=== PATIENT | female | born 1960 | race Caucasian/White ===

== ENCOUNTER 2025-10-12 11:08 | Outpatient (AMB) | payer MEDICARE, SELFPAY ==
--- NOTE | 2025-10-12 11:09 | A.OFFPC_ITS ---
Vital Signs 10/12/25 11:12 Height 5 ft 1 in Weight 125 lb BMI 23.6 BP 122/70 Blood Pressure Location Lt brachial Position Sitting Respiration 16 Pulse 72 Pulse Source Pulse Oximeter Temp 97.3 F Temp Source Temporal Artery Scan Pulse Oximetry (%) 97 Oxygen Delivery Method Room Air Intake Visit Reasons: [facility] care Adhesive Sprayer Required: No Accompanied by: Self / Same As Patient Allergies bee pollen (bee stings) Allergy (Intermediate, Verified 10/12/25 11:14) Hives Medication List - Last Reconciled 10/12/25 by Katie Phoenix MD bupropion HCl XL 300 mg PO DAILY Tobacco use date assessed: 10/12/25 Fall risk assessment: No Falls in past year Last assessed Fall Risk: 10/12/25 Dental Screening Dental Screen Date: 10/12/25 Did you have a dental visit in the last 12 months?: Yes Did you have a dental problem in the last 6 months where you did not have access to dental care?: No Was dental information given to patient?: Patient has dentist [facility] Medical History (Updated 10/12/25 @ 11:40 by Katie Phoenix MD) Routine adult health maintenance Hyperlipidemia, unspecified Depression with anxiety Surgical History (Updated 10/09/25 @ 16:16 by Thuy Hunt) History of colonoscopy (~04/09/19) Family History (Updated 10/12/25 @ 11:21 by Katie Phoenix MD) Other Alzheimer's dementia Breast cancer Hx of CABG Hyperlipidemia, unspecified Social History Housing: House Patient Tobacco Use Status: Never used Tobacco e-Cigarette/Vaping Use: Never Used service: No Current occupational status: retired Questionnaire PHQ-9 Over the last 2 weeks, how often have you been bothered by any of the following problems? 1. Little interest or pleasure in doing things: several days 2. Feeling down, depressed, or hopeless: not at all 3. Trouble falling or staying asleep, or sleeping too much: not at all 4. Feeling tired or having little energy: not at all 5. Poor appetite or overeating: not at all 6. Feeling bad about yourself - or that you are a failure or have let yourself or your family down: not at all 7. Trouble concentrating on things, such as reading the newspaper or watching television: not at all 8. Moving or speaking so slowly that other people could have noticed. Or the opposite - being so fidgety or restless that you have been moving around a lot more than usual: not at all 9. Thoughts that you would be better off or of hurting yourself in some way: not at all Total score: 1 Depression Screening Interpretation: Negative Depression Screening Done: Yes 90487 - PHQ-9 Billing: Yes Source: Developed by Drs. Jeffery Chung, Lyssa Henson, Konrad Mcnally and colleagues, with an educational kimberley from [employer]. AUDIT C Alcohol Use Questionnaire (AUDIT-C) 1. How often do you have a drink containing alcohol?: Monthly or less 2. How many drinks containing alcohol do you have on a typical day when you are drinking?: 1 or 2 3. How often do you have six or more drinks on one occasion?: Never Total Score: 1 Physical exam (Primary Care) Vital Signs: Last Vital Signs Temp 97.3 F 10/12/25 11:12 Pulse 72 10/12/25 11:12 Resp 16 10/12/25 11:12 BP 122/70 10/12/25 11:12 Pulse Ox 97 10/12/25 11:12 Oxygen Delivery Method Room Air 10/12/25 11:12 BMI result Body Mass Index 23.6 Tobacco/Smoking Status: Tobacco use Status Tobacco use date assessed 10/12/25 10/12/25 11:16 Patient Tobacco Use Status Never used Tobacco 10/12/25 11:16 e-Cigarette/Vaping Use Never Used 10/12/25 11:16 PHQ-9: PHQ-9 Score PHQ-9: Total score 1 10/12/25 11:46 Depression Screening Interpretation: Negative Coding Diagnoses Hyperlipidemia, unspecified E78.5 Routine adult health maintenance Z00.00 Additional Codes PHQ-9 - 85157 - PHQ-9 Billing: Yes ([id number]) Assessment & Plan Assessment & Plan (1) Hyperlipidemia, unspecified: Code(s): E78.5 - Hyperlipidemia, unspecified Category: Medical (2) Routine adult health maintenance: Code(s): Z00.00 - Encounter for general adult medical examination without abnormal findings Category: Medical Orders: Orders Complete Blood Count Auto Diff Today E78.5 - Hyperlipidemia, unspecified, Z00.00 - Encounter for general adult medical examination without abnormal findings Comprehensive Met. Panel Today E78.5 - Hyperlipidemia, unspecified, Z00.00 - Encounter for general adult medical examination without abnormal findings Lipid Panel Today E78.5 - Hyperlipidemia, unspecified, Z00.00 - Encounter for general adult medical examination without abnormal findings Medications: New bupropion HCl XL 300 mg (2 x 150 mg) PO DAILY 180 tabs 3RF
[2025-10-12 11:12] VITALS: BP 122/70; PULSE 72; RESP 16; TEMP 36.3; O2SAT 97; BMI 23.6
--- NOTE | 2025-10-12 12:03 | AM.OFFVISMDC ---
Intake Vital Signs 10/12/25 11:12 Height 5 ft 1 in Weight 125 lb BMI 23.6 BP 122/70 Blood Pressure Location Lt brachial Position Sitting Respiration 16 Pulse 72 Pulse Source Pulse Oximeter Temp 97.3 F Temp Source Temporal Artery Scan Pulse Oximetry (%) 97 Oxygen Delivery Method Room Air Intake Visit Reasons: [facility] care Lead Cargoman Required: No Accompanied by: Self / Same As Patient Allergies bee pollen (bee stings) Allergy (Intermediate, Verified 10/12/25 12:03) Hives Medication List - Last Reconciled 10/12/25 by Katie Phoenix MD bupropion HCl XL 300 mg PO DAILY HPI HPI Comments History of Present Illness Details The patient is a 65-year-old female presenting to [facility] and for Medicare Wellness Visit. Health Risk Assessment Completed. No cognitive deficits noted, no opioid use. Min Cog score 5/5. Grief Reaction and Depression: The patient is managing ongoing grief following the of her in 2022, about a year after she retired. She reports experiencing intermittent waves of sadness, which she describes as a cloud over my head, that can be triggered by events such as anniversaries and may last for two to five days, though she notes the intensity has lessened. She successfully tapered off sertraline and continues to take bupropion 300 mg (two 150mg tablets) each morning, which helps with energy and feelings of dragging. The patient leads an active lifestyle, playing pickleball, tennis, and paddle, and attending exercise classes. Health Maintenance: The patient's next mammogram is due in 2025. Her previous mammograms were performed at [facility], and she will arrange to have those records transferred. The patient feels she is independent with her activities of daily living and managing her health. Colonoscopy up to date. Last bone density done at [facility] November 2024- showed osteopenia. Allergies: The patient reports an allergy to bee stings. She also had a reaction to the RSV vaccine, which was evaluated by a cone winder in [place]. Care Team [facility]-mammogram Dr. Guzman-cone winder in [facility] Medical History (Updated 10/12/25 @ 13:05 by Katie Phoenix MD) Osteopenia Routine adult health maintenance Hyperlipidemia, unspecified Depression with anxiety Surgical History (Updated 10/09/25 @ 16:16 by Thuy Hunt) History of colonoscopy (~04/09/19) Family History (Updated 10/12/25 @ 11:21 by Katie Phoenix MD) Other Alzheimer's dementia Breast cancer Hx of CABG Hyperlipidemia, unspecified Social History Housing: House Patient Tobacco Use Status: Never used Tobacco e-Cigarette/Vaping Use: Never Used service: No Current occupational status: retired Questionnaire Medicare Wellness Checkup [age] What gender do you identify with?: female During the past 4 weeks, how much have you been bothered by emotional problems such as feeling anxious, depressed, irritable, sad or downhearted, and blue?: slightly During the past 4 weeks, has your physical & emotional health limited your social activities with family, friends, neighbors, or groups?: slightly During the past 4 weeks, how much bodily pain have you generally had?: no pain During the past 4 weeks, was someone available to help you if you needed & wanted help?: yes, as much as I wanted During the past 4 weeks, what was the hardest physical activity you could do for at least 2 minutes?: very heavy Can you get to places out of walking distance without help? (For eg., can you travel alone on buses, taxis or drive your car?): Yes Can you go shopping for groceries or clothes without someone's help?: Yes Can you prepare your own meals?: Yes Can you do your housework without help?: Yes Because of any health problems, do you need the help of another person with your personal care needs such as eating, bathing, dressing or getting around the house?: No Can you handle your own money without help?: Yes During the past 4 weeks, how would you rate your health in general?: excellent During the past 4 weeks how have things been going for you?: very well; could hardly better Are you having difficulties driving your car?: no Do you always fasten your seat belt when you are in a car?: yes, usually During past 4 weeks, have you been bothered by the following: never: Falling or dizzy when standing up, Trouble eating well? and Problems using the telephone? and seldom: Tiredness or fatigue? Have you fallen 2 or more times in the past year?: No Are you afraid of falling?: No Are you a smoker?: no During the past 4 weeks, how many drinks of wine, beer, or other alcoholic beverages did you have?: 1 drink or less per week Do you exercise for about 20 minutes 3 or more times a week?: yes, most of the time Have you been given information to help with the following?: no: Hazards in your house that might hurt you? and no: Keeping track of your medications? How often do you have trouble taking medicines the way you have been told to take them?: I always take medicine as prescribed How confident are you that you can control & manage most of your health problems?: very confident What is your race?: White PHQ-9 Over the last 2 weeks, how often have you been bothered by any of the following problems? 1. Little interest or pleasure in doing things: several days 2. Feeling down, depressed, or hopeless: not at all 3. Trouble falling or staying asleep, or sleeping too much: not at all 4. Feeling tired or having little energy: not at all 5. Poor appetite or overeating: not at all 6. Feeling bad about yourself - or that you are a failure or have let yourself or your family down: not at all 7. Trouble concentrating on things, such as reading the newspaper or watching television: not at all 8. Moving or speaking so slowly that other people could have noticed. Or the opposite - being so fidgety or restless that you have been moving around a lot more than usual: not at all 9. Thoughts that you would be better off or of hurting yourself in some way: not at all Total score: 1 Depression Screening Interpretation: Negative Depression Screening Done: Yes 45404 - PHQ-9 Billing: Yes Source: Developed by Drs. Jeffery Chung, Lyssa Henson, Konrad Mcnally and colleagues, with an educational kimberley from [employer]. AUDIT C Alcohol Use Questionnaire (AUDIT-C) 1. How often do you have a drink containing alcohol?: Monthly or less 2. How many drinks containing alcohol do you have on a typical day when you are drinking?: 1 or 2 3. How often do you have six or more drinks on one occasion?: Never Total Score: 1 Review of Systems Narrative Review of Systems - Constitutional: Reports occasional emotional fatigue in the evenings and a dragging feeling in the mornings. Denies pain, or falls. - Psychiatric: Reports intermittent low mood that lasts for a few days at a time but denies that it is as intense as it was previously. - Allergic/Immunologic: Reports an allergy to bee stings and a history of a reaction to the RSV vaccine. - Neurological: Denies fear of falling. - Musculoskeletal: Denies pain. - Extremities: Denies swelling. Physical Exam Exam Exam: Physical Exam - General: Alert and cooperative, no acute distress. - HEENT: Ears are clear. - Oropharynx is clear. - Neck: Supple, no tenderness on palpation. - Lungs: Clear to auscultation bilaterally. - Cardiovascular: Normal heart sounds. - Abdomen: Soft, non-tender, with normoactive bowel sounds. - Extremities: No lower extremity edema. - Neurological: Passed Mini-Cog screening, including clock draw and 3-word recall. Vital Signs: Last Vital Signs Temp 97.3 F 10/12/25 11:12 Pulse 72 10/12/25 11:12 Resp 16 10/12/25 11:12 BP 122/70 10/12/25 11:12 Pulse Ox 97 10/12/25 11:12 Oxygen Delivery Method Room Air 10/12/25 11:12 BMI result Body Mass Index 23.6 Assessment & Plan Assessment & Plan (1) Routine adult health maintenance: Code(s): Z00.00 - Encounter for general adult medical examination without abnormal findings (2) Hyperlipidemia, unspecified: Code(s): E78.5 - Hyperlipidemia, unspecified Qualifiers: Hyperlipidemia type: unspecified Qualified Code(s): E78.5 - Hyperlipidemia, unspecified Plan Assessment and Plan 1. Grief Reaction/Depression - The patient is managing her mood and grief with bupropion 300 mg (two tablets daily) after successfully tapering off sertraline. - She reports it helps her morning energy levels. - Plan is to continue bupropion. 2. Health Maintenance/Re-establishment of Care - The patient presents for a wellness visit to re-establish care. - A plan for routine monitoring was established. - Plan includes ordering fasting labs for diabetes, cholesterol, and liver/kidney function - The patient will contact [facility] to have her prior mammogram records transferred. - Follow-up is scheduled for a yearly physical in 2025 Plan - Orders for fasting labs have been placed. - Patient will have mammogram records from [facility] sent to the office. - Patient to schedule a follow-up appointment for her annual physical next year Discussion Notes I have seen the patient today to re-establish care. We discussed her current medication regimen, and I have renewed her prescription for bupropion 300 mg. I provided a requisition for routine fasting labs We reviewed her preventative health needs, and I advised her to request her prior mammogram records from [facility] for our files. Patient Instructions - Continue taking your bupropion (Wellbutrin) as prescribed. - Please go to the lab for fasting blood work (do not eat or drink anything except water for 8-12 hours before). - Please contact the [facility] to request that they fax your past results - Please feel free to call our office if you have any questions or concerns. Orders: Orders Complete Blood Count Auto Diff Today E78.5 - Hyperlipidemia, unspecified, Z00.00 - Encounter for general adult medical examination without abnormal findings Comprehensive Met. Panel Today E78.5 - Hyperlipidemia, unspecified, Z00.00 - Encounter for general adult medical examination without abnormal findings Lipid Panel Today E78.5 - Hyperlipidemia, unspecified, Z00.00 - Encounter for general adult medical examination without abnormal findings Medications: New bupropion HCl XL 300 mg (2 x 150 mg) PO DAILY 180 tabs 3RF Quality Reporting (2019) Depression/Bipolar (159/160/161/177) PHQ-9: Total score: 1 Coding Level of Care Code Medicare Subsequent (G0439) Diagnoses Routine adult health maintenance Z00.00 Hyperlipidemia, unspecified hyperlipidemia type E78.5 Hyperlipidemia type: unspecified Additional Codes PHQ-9 - 36891 - PHQ-9 Billing: Yes ([id number]) Comment add [id number] code to visit
== END 2025-10-12 11:58 | disposition home or self-care (01) ==
LOC: HO.HMCHD 11:09
PROVIDERS: PCP Internal Medicine; Visit Provider Internal Medicine
DX: Z00.00 Encounter for general adult medical examination without abnormal findings (principal); E78.5 Hyperlipidemia, unspecified

== ENCOUNTER → 2025-10-12 11:08 | Outpatient (BNVA) | payer MEDICARE, SELFPAY | PROVIDERS: PCP Internal Medicine; Visit Provider Internal Medicine | DX: Z00.00 Encounter for general adult medical examination without abnormal findings (principal); E78.5 Hyperlipidemia, unspecified; M85.80 Other specified disorders of bone density and structure, unspecified site; F43.23 Adjustment disorder with mixed anxiety and depressed mood; Z76.89 Persons encountering health services in other specified circumstances; Z13.30 Encounter for screening examination for mental health and behavioral disorders, unspecified | CPT/HCPCS: 96127; 99212 ==

== ENCOUNTER 2025-10-16 09:05 | Outpatient (REF) | payer MEDICARE, SELFPAY ==
--- OUTSIDE RECORDS SUMMARY | 2025-10-16 09:26 | XMS_ITS | Encounter Summary ---
Author Organization [facility] Address [address] [facility] [address] [place] [phone] Phone Care Team Providers Care Complaint Inspector Name Role Phone Katie Phoenix MD Primary Care Provider + Encounter Details Date Type Department Care Team (Late st Contact Info) Description 05/30/2023 Procedure Pass [facility] [address] [place] [phone] Social History Tobacco Use Types Packs/Day Years Used Date Smoking Tobacco: Never Assessed Education Answer Date Recorded Are you interested in more education? Not on marion e 03/22/2023 Are you concerned about learning? Not on file 03/22/2023 No 03/22/2023 No 03/22/2023 Digital Access Answer Date Recorded No 04/18/2023 No 04/18/2023 Reliable internet access at home? Not on file 04/18/2023 Device with a working camera? Not on file Comments Unknown Sex and Gender Information Value Date Recorded Sex Assigned at Not on file Legal Sex Female 7:43 PM EST Gender Identity Not on file Sexual Orientation Not on file documented as of this encounter Plan of Treatment Upcoming Encounters Date Type Department Care Team (Late Contact Info) Description 08/12/2024 Procedure Pass [facility] [address] [place] [phone] 01/21/2026 1:45 PM EST Appointment [facility] [address] [place] [phone] Katie Phoenix MD [address] [place] [phone] documented as of this encounter Visit Diagnoses Not on filedocumented in this encounter Care Teams Complaint Inspector Relationship Specialty Start Date End Date Katie Phoenix MD PCP - General Internal Medicine 11/12/19 documented as of this encounter Additional Source Comments The information contained in this document represents components of the legal health record. It is not the complete legal health record.[facility]
--- OUTSIDE RECORDS SUMMARY | 2025-10-16 09:26 | XMS_ITS | Encounter Summary ---
Author Organization [facility] Address [address] [address] Phone Care Team Providers Care Distribution Center Associate Name Role Phone Katie Phoenix MD Primary Care Provider + Encounter Details Date Type Department Care Team (Late st Contact Info) Description 06/05/2024 Ancillary Orders [facility] [address] [place] [address] Katie Phoenix MD [address] [place] [phone] Abnormal finding on radiological examination of breast (Primary Dx) Social History Tobacco Use Types Packs/Day Years [...] Encounters Date Type Department Care Team (Late st Contact Info) Description 08/12/2024 Procedure Pass [facility] [address] [place] [address] 01/21/2026 1:45 PM EST Appointment [facility] [address] [place] [address] Katie Phoenix MD [address] [place] [phone] documented as of this encounter Results * (ABNORMAL) BI MAMMOGRAM DIAGNOSTIC WITH TOMOSYNTHESIS WITH CAD (RIGHT) (06/19/2024 12:42 PM EDT) Anatomical Region Laterality Modality Breast Right, Breast Bilateral Right M ammography 06/19/2024 2:20 PM EDT Impressions 06/19/2024 2:53 PM EDT New 0.3 cm group of indeterminate calcifications in the right upper outer quadrant. Recommend stereotactic core biopsy at this time. BI-RADS 4B SUSPICIOUS Results and recommendations were communicated to the patient at time of examination. The patient has met with the breast imaging navigator to schedule the recommended procedure. Results and recommendations will be communicated to the referring provider via phone call. ATTESTATION: Kiki Rivera, as teaching physician have reviewed the images, if any, for this patient's exam, and if necessary, have edited the report originally created by Julián Piña. Narrative 06/19/2024 2:53 PM EDT BI MAMMOGRAM DIAGNOSTIC WITH TOMOSYNTHESIS WITH CAD (RIGHT) Additional patient information: Callback from screening. COMPARISON: Comparison is made with relevant prior imaging. Breast composition: The breast tissue is heterogeneously dense which may obscure small masses. FINDINGS: Right Mammogram: Magnification views redemonstrate grouped, amorphous calcifications of upper outer quadrant at mid depth in an area measuring 0.3 cm. Procedure Note Kiki Steel MD - 06/19/2024 BI MAMMOGRAM DIAGNOSTIC WITH TOMOSYNTHESIS WITH CAD (RIGHT) Additional patient information: Callback from screening. COMPARISON: Comparison is made with relevant prior imaging. Breast composition: The breast tissue is heterogeneously dense which mayobscure small masses. FINDINGS: Right Mammogram: Magnification views redemonstrate grouped, amorphous calcifications ofupper outer quadrant at mid depth in an area measuring 0.3 cm. IMPRESSION: New 0.3 cm group of indeterminate calcifications in the right upper outerquadrant. Recommend stereotactic core biopsy at this time. BI-RADS 4B SUSPICIOUS Results and recommendations were communicated to the patient at time ofexamination. The patient has met with the breast imaging navigator toschedule the recommended procedure. Results and recommendations will be communicated to the referring providervia phone call. ATTESTATION: Kiki Rivera, as teaching physician have reviewed theimages, if any, for this patient's exam, and if necessary, have edited thereport originally created by Juilán Piña. us Katie Phoenix MD IMG MG EXAMS Final Re sult documented in this encounter Visit Diagnoses Diagnosis Abnormal finding on radiological examination of breast- Primary Abnormal finding on radiological examination of breast documented in this encounter Care Teams Distribution Center Associate Relationship Specialty Start Date End Date Katie Phoenix MD PCP - General Internal Medicine 11/12/19 documented as of this encounter Additional Source Comments The information contained in this document represents components of the legal health record. It is not the complete legal health record.[facility]
--- OUTSIDE RECORDS SUMMARY | 2025-10-16 09:26 | XMS_ITS | Encounter Summary ---
Author Organization [facility] Address [address] [facility] [address] [place] [address] Phone Care Team Providers Care Endband Sizer Name Role Phone Remy Bustillos MD Unavailable [phone] Katie Phoenix MD Primary Care Provider + Encounter Details Date Type Department Care Team (Late st Contact Info) Description 09/19/2016 Transcribe Orders [facility] [address] [place] [phone] Remy Bustillos MD [address] [place] [phone] Social History Tobacco Use Types Packs/Day Years Used Date Smoking Tobacco: Never Assessed Comments Unknown Sex and Gender Information Value Date Recorded Sex Assigned at Not on file Legal Sex Female 7:43 PM EST Gender Identity Not on file Sexual Orientation Not on file documented as of this encounter Plan of Treatment Upcoming Encounters Date Type Department Care Team (Late st Contact Info) Description 08/12/2024 Procedure Pass [facility] [address] [place] [phone] 01/21/2026 1:45 PM EST Appointment [facility] [address] [place] [phone] Katie Phoenix MD [address] [place] [phone] documented as of this encounter Results * Mammogram Outside (No Interpretation) (04/09/2013 12:15 AM EDT) Narrative SILVESTRE - 09/19/2016 12:29 PM EDT This study is for PACS storage only and not for interpretation. us Provider Not In System PhD IMG OUTSIDE IMAGING W /OUT INTERPRETATION Final Result SILVESTRE documented in this encounter Visit Diagnoses Not on filedocumented in this encounter Care Teams Endband Sizer Relationship Specialty Start Date End Date Remy Bustillos MD [address] [place] [address] Drive [address] [place] [phone] PCP - OBGYN Obstetrics and Gynecology 11/01/16 Katie Phoenix MD [address] [place] [address] Drive [address] [place] [address] PCP - General Internal Medicine 11/12/19 documented as of this encounter Additional Source Comments The information contained in this document represents components of the legal health record. It is not the complete legal health record.[facility]
--- OUTSIDE RECORDS SUMMARY | 2025-10-16 09:26 | XMS_ITS | Encounter Summary ---
Author Organization [facility] Address [address] [address] Phone Care Team Providers Care Technical Designer Name Role Phone Katie Phoenix MD Primary Care Provider + Encounter Details Date Type Department Care Team (Late st Contact Info) Description 06/03/2024 Ancillary Orders [facility] [address] Katie Phoenix MD [address] [place] [phone] Screening mammogram, encounter for (Primary Dx) Social History Tobacco Use Types [...] st Contact Info) Description 08/12/2024 Procedure Pass [facility] [address] [place] [address] 01/21/2026 1:45 PM EST Appointment [facility] [address] [place] [address] Katie Phoenix MD [address] [place] [address] documented as of this encounter Visit Diagnoses Diagnosis Screening mammogram, encounter for- Primary documented in this encounter Care Teams Technical Designer Relationship Specialty Start Date End Date Katie Phoenix MD PCP - General Internal Medicine 11/12/19 documented as of this encounter Additional Source Comments The information contained in this document represents components of the legal health record. It is not the complete legal health record.[facility]
--- OUTSIDE RECORDS SUMMARY | 2025-10-16 09:26 | XMS_ITS | Clinical Summary ---
Author Organization [facility] Address [address] [place] [address] Care Team Providers Care Loan Collector Name Role Phone Katie Phoenix MD Primary Care Provider [phone]- [phone] Allergies No known active allergies Medications EPINEPHrine 0.3 mg/0.3 mL IJ auto-injection INJECT 0.3 MG INTRAMUSCULARLY ONCE 11/23/20 20 Active Estring 2 MG vaginal ring 11/22/20 20 Active finasteride (PROSCAR) 5 MG tablet 11/10/20 20 Active Active Problems No known active problems Social History Tobacco Use Types Packs/Day Years Used Date Smoking Tobacco: Never Assessed Comments Unknown Sex and Gender Information Value Date Recorded Sex Assigned at Not on file Legal Sex Female 8:25 AM EST Gender Identity Not on file Sexual Orientation Not on file Last Filed Vital Signs Vital Sign Reading Time Taken Comments Blood Pressure 105/72 01/20/2021 2:39 PM EST Pulse 75 01/20/2021 2:39 PM EST Temperature 37.2 C (98.9 F) 01/20/2021 2:39 PM EST Respiratory Rate - - Oxygen Saturation 96% 01/20/2021 2:39 PM EST Inhaled Oxygen Concentration - - Weight 58.1 kg (128 lb) 01/20/2021 2:39 PM EST Height 157.5 cm (5' 2 ) 01/20/2021 2:39 PM EST Body Mass Index 23.41 01/20/2021 2:39 PM EST Plan of Treatment Health Maintenance Due Date Last Done Comments Advance Care Planning 1960 Hepatitis C Virus Screening 1960 DTaP/Tdap/Td Vaccines (1 - Tdap) 1977 Mammogram 1998 Colonoscopy 2003 Pneumococcal Vaccines 50+ (1 of 1 - PCV) 2008 Zoster (Shingles) Vaccine (1 of 2) 2008 DXA Bone Density (Females,Ag es 65 and older) 2023 Influenza Vaccine 06/26/2025 COVID-19 Vaccine (1 - 2023-2 5 season) 2025 RSV Vaccine 50 years and old er and Patients (1 - 1-dose 75+ series) 2033 Hepatitis B Vaccines Aged Out No long er eligible based on patient's age to complete this topic Insurance [employer] HMO/POS Care Teams Loan Collector Relationship Specialty Start Date End Date Katie Phoenix MD [address] [place] [address] PCP - General Internal Medicine 01/20/21
--- OUTSIDE RECORDS SUMMARY | 2025-10-16 09:26 | XMS_ITS | Encounter Summary ---
Author Organization [facility] Address [address] [facility] [address] [place] [address] Phone Care Team Providers Care Wire Inserter Name Role Phone Remy Bustillos MD Unavailable Katie Phoenix MD Primary Care Provider + Encounter Details Date Type Department Care Team (Late st Contact Info) Description 11/01/2016 Ancillary Orders [facility] [address] [place] [address] Remy Bustillos MD [address] [place] [address] [phone] Screening breast examination Social History Tobacco Use Types Packs/Day Years [...] st Contact Info) Description 08/12/2024 Procedure Pass [facility] [address] [place] [phone] 01/21/2026 1:45 PM EST Appointment [facility] [address] [place] [address] Katie Phoenix MD [address] [place] [address] documented as of this encounter Visit Diagnoses Diagnosis Screening breast examination Other screening breast examination documented in this encounter Care Teams Wire Inserter Relationship Specialty Start Date End Date Remy Bustillos MD [address] [place] [address] Drive [address] [place] [address] PCP - OBGYN Obstetrics and Gynecology 11/01/16 Katie Phoenix MD [address] [place] [address] Drive [address] [place] [address] PCP - General Internal Medicine 11/12/19 documented as of this encounter Additional Source Comments The information contained in this document represents components of the legal health record. It is not the complete legal health record.[facility]
--- OUTSIDE RECORDS SUMMARY | 2025-10-16 09:27 | XMS_ITS | Encounter Summary ---
Author Organization [facility] Address [id number] [place] [address] Phone Care Team Providers Care Food And Beverage Coordinator Name Role Phone Katie Phoenix MD Primary Care Provider + Encounter Details Date Type Department Care Team (Late st Contact Info) Description 09/09/2021 Ancillary Orders [facility] [address] [place] [address] Katie Phoenix MD [address] [place] [address] [phone] Screening mammogram, encounter for Social History Tobacco Use Types Packs/Day Years [...] st Contact Info) Description 08/12/2024 Procedure Pass [facility] [address] [place] [phone] 01/21/2026 1:45 PM EST Appointment [facility] Breast [facility] Diagnostic [address] [address] Katie Phoenix MD [address] [place] [address] [phone] documented as of this encounter Results * BI MAMMOGRAM SCREENING WITH TOMOSYNTHESIS WITH CAD (BILATERAL) (03/23/2022 2:14 PM EDT) Anatomical Region Laterality Modality Breast Left, Breast Right, Breast Bilateral Bila teral Mammography 03/23/2022 5:07 PM EDT Impressions 03/23/2022 5:08 PM EDT No mammographic evidence of malignancy. Recommend routine screening. The patient was sent a letter with the results of the exam and follow-up recommendation. OVERALL ASSESSMENT -- BI-RADS 1 NEGATIVE Narrative 03/23/2022 5:08 PM EDT Reason for exam: Screening. No new breast complaints. TECHNIQUE: Digital Mammography and tomosynthesis were used to obtain images. Computer Aided Detection was used to aid in interpretation and volumetric breast density assessment may have been used as an aid in evaluating breast density. COMPARISON: Comparison is made with relevant prior imaging in PACS. Breast Composition: extremely dense which lowers the sensitivity of mammography. FINDINGS: Bilateral Breasts: No significant masses, suspicious calcifications, or other abnormalities are seen. Procedure Note Kiki Steel MD - 03/23/2022 Reason for exam: Screening. No new breast complaints. TECHNIQUE: Digital Mammography and tomosynthesis were used to obtain images. ComputerAided Detection was used to aid in interpretation and volumetric breastdensity assessment may have been used as an aid in evaluating breastdensity. COMPARISON: Comparison is made with relevant prior imaging in PACS. Breast Composition: extremely dense which lowers the sensitivity ofmammography. FINDINGS: Bilateral Breasts: No significant masses, suspicious calcifications, or other abnormalitiesare seen. IMPRESSION: No mammographic evidence of malignancy. Recommend routine screening. The patient was sent a letter with the results of the exam and follow-uprecommendation. OVERALL ASSESSMENT -- BI-RADS 1 NEGATIVE us Katie Phoenix MD IMG MG EXAMS Final Re sult documented in this encounter Visit Diagnoses Diagnosis Screening mammogram, encounter for Screening mammogram, encounter for documented in this encounter Care Teams Food And Beverage Coordinator Relationship Specialty Start Date End Date Katie Phoenix MD PCP - General Internal Medicine 11/12/19 documented as of this encounter Additional Source Comments The information contained in this document represents components of the legal health record. It is not the complete legal health record.[facility]
--- OUTSIDE RECORDS SUMMARY | 2025-10-16 09:27 | XMS_ITS | Encounter Summary ---
Author Organization [facility] Address [address] [address] Phone Care Team Providers Care Computer Aided Design Operator Name Role Phone Katie Phoenix MD Primary Care Provider + Encounter Details Date Type Department Care Team (Late st Contact Info) Description 07/24/2024 Ancillary Orders [facility] [address] [place] [address] Katie Phoenix MD [address] [place] [phone] Abnormal finding on radiological examination of breast [...] st Contact Info) Description 08/12/2024 Procedure Pass [facility] [address] [place] [address] 01/21/2026 1:45 PM EST Appointment [facility] [address] [place] [address] Katie Phoenix MD [address] [place] [address] documented as of this encounter Results * BI MAMMOGRAM BREAST SPECIMEN POST PROCEDURE BIOPSY NO TOMOSYNTHESIS NO CAD (RIGHT) (07/24/2024 10:46 AM EDT) Anatomical Region Laterality Modality Breast Right, Breast Bilateral Right M ammography 07/24/2024 10:3 8 AM EDT Addenda Addendum by Genny Huddleston MD on 07/25/2024 2:17 PM EDT ADDENDUM: Core biopsy of right upper outer breast 0.3 cm calcifications (buckle clip): Pathology findings: A. Breast core biopsy, RIGHT, stereo guided with calcs (UOQ, Middle depth): Calcification present in apocrine metaplasia, benign lobule and stroma. B. Breast core biopsy, RIGHT, stereotactically guided (OUQ, Middle depth): Calcification present in benign lobules. This result is: Benign and concordant. Recommendation: Recommend routine screening. Communication of results: The results and recommendation were called to the patient by Rachael Ratliff MD on 07/25/2024 at 1:41 PM. A clinically significant result was initiated on 07/25/2024 2:17 PM, Message ID [id number]. ATTESTATION: IGenny, as teaching physician have reviewed the images, if any, for this patient's exam, and if necessary, have edited the report originally created by Rachael Ratliff. Impressions 07/24/2024 10:48 AM EDT Stereotactic core needle biopsy of the right breast upper outer calcifications (buckle clip)- please see report content for details. An addendum to this report will be dictated when pathology results are available. The attending physician, Genny Huddleston, was present for the entire radiologic and neil portions of the procedure and was immediately available for the non- critical/neil portions. ATTESTATION: Genny Rivera, as teaching physician have reviewed the images, if any, for this patient's exam, and if necessary, have edited the report originally created by Rachael Ratliff. Narrative 07/24/2024 10:48 AM EDT BI MAMMOGRAM STEREOTACTIC BREAST CORE BIOPSY (RIGHT), BI MAMMOGRAM DIAGNOSTIC POST PROCEDURE (RIGHT), BI MAMMOGRAM BREAST SPECIMEN POST PROCEDURE BIOPSY (RIGHT) Additional patient information: 64-year-old woman presenting for stereotactic biopsy of 0.3 cm group of amorphous calcifications in the upper outer right breast. COMPARISON: Comparison is made with relevant prior imaging. TECHNIQUE: The procedure was explained to the patient, including discussion of risks and benefits, and written informed consent was obtained. A preprocedural timeout was performed to confirm patient identity with multiple identifiers, as well as the side of the procedure to be performed. Mammographic imaging was performed to localize the target. The procedure site was prepped using standard aseptic technique. Local anesthesia was administered and documented in the EMR. Under stereotactic guidance, core biopsy was performed of the target lesion. FINDINGS: SITE #1 Location: Right breast, upper outer quadrant at middle depth Target: 0.3 cm span of calcifications Device: 9-gauge standard core biopsy needle with vacuum assistance Clip: A buckle shape clip was placed at the procedure site. Post procedure mammogram: Biopsy clip in good position. Specimen radiograph: Multiple calcifications are present in the specimen. Specimen: Multiple cores obtained. Submitted in formalin to pathology. The patient tolerated the procedure and there were no immediate complications. Procedure Note Genny Huddleston MD / System, Provider Not In, PhD - 07/24/2024 BI MAMMOGRAM STEREOTACTIC BREAST CORE BIOPSY (RIGHT), BI MAMMOGRAMDIAGNOSTIC POST PROCEDURE (RIGHT), BI MAMMOGRAM BREAST SPECIMEN POSTPROCEDURE BIOPSY (RIGHT) Additional patient information: 64-year-old woman presenting forstereotactic biopsy of 0.3 cm group of amorphous calcifications in theupper outer right breast. COMPARISON: Comparison is made with relevant prior imaging. TECHNIQUE: The procedure was explained to the patient, including discussion of risksand benefits, and written informed consent was obtained. A preproceduraltimeout was performed to confirm patient identity with multipleidentifiers, as well as the side of the procedure to be performed. Mammographic imaging was performed to localize the target. The proceduresite was prepped using standard aseptic technique. Local anesthesia wasadministered and documented in the EMR. Under stereotactic guidance, corebiopsy was performed of the target lesion. FINDINGS: SITE #1 Location: Right breast, upper outer quadrant at middle depth Target: 0.3 cm span of calcifications Device: 9-gauge standard core biopsy needle with vacuum assistance Clip: A buckle shape clip was placed at the procedure site. Post procedure mammogram: Biopsy clip in good position. Specimen radiograph: Multiple calcifications are present in thespecimen. Specimen: Multiple cores obtained. Submitted in formalin to pathology. The patient tolerated the procedure and there were no immediatecomplications. IMPRESSION: Stereotactic core needle biopsy of the right breast upper outercalcifications (buckle clip)- please see report content for details. An addendum to this report will be dictated when pathology results areavailable. The attending physician, Genny Huddleston, was present for the entireradiologic and neil portions of the procedure and was immediately availablefor the non- critical/neil portions. ATTESTATION: I, Genny Huddleston, as teaching physician have reviewed theimages, if any, for this patient's exam, and if necessary, have edited thereport originally created by Rachael Ratliff. us Katie Phoenix MD IMG BI IRP GUIDED BREAST PROC Edited Result - Final documented in this encounter Visit Diagnoses Diagnosis Abnormal finding on radiological examination of breast- Primary Abnormal finding on radiological examination of breast documented in this encounter Care Teams Computer Aided Design Operator Relationship Specialty Start Date End Date Katie Phoenix MD PCP - General Internal Medicine 11/12/19 documented as of this encounter Additional Source Comments The information contained in this document represents components of the legal health record. It is not the complete legal health record.[facility]
--- OUTSIDE RECORDS SUMMARY | 2025-10-16 09:27 | XMS_ITS | Encounter Summary ---
Author Organization [facility] Address [address] [facility] [address] [place] [address] Phone Care Team Providers Care Pharmacovigilance Scientist Name Role Phone Remy Bustillos MD Unavailable Katie Phoenix MD Primary Care Provider + Encounter Details Date Type Department Care Team (Late st Contact Info) Description 11/04/2018 Ancillary Orders [facility] [address] [place] [phone] Remy Bustillos MD [address] [place] [address] [phone] Abnormal mammogram Social History Tobacco Use Types Packs/Day Years [...] st Contact Info) Description 08/12/2024 Procedure Pass [facility] [address] [place] [address] 01/21/2026 1:45 PM EST Appointment [facility] [address] [place] [address] Katie Phoenix MD [address] [place] [address] documented as of this encounter Visit Diagnoses Diagnosis Abnormal mammogram Abnormal mammogram, unspecified documented in this encounter Care Teams Pharmacovigilance Scientist Relationship Specialty Start Date End Date Remy Bustillos MD [address] [place] [address] Drive [address] [place] [address] PCP - OBGYN Obstetrics and Gynecology 11/01/16 Katie Phoenix MD [address] [place] [address] Drive [address] [place] [address] PCP - General Internal Medicine 11/12/19 documented as of this encounter Additional Source Comments The information contained in this document represents components of the legal health record. It is not the complete legal health record.[facility]
--- OUTSIDE RECORDS SUMMARY | 2025-10-16 09:27 | XMS_ITS | Encounter Summary ---
Author Organization [facility] Address [address] [facility] [address] [place] [address] Phone Care Team Providers Care Clean In Places Operator Name Role Phone Remy Bustillos MD Unavailable Katie Phoenix MD Primary Care Provider + Encounter Details Date Type Department Care Team (Late st Contact Info) Description 11/27/2018 Ancillary Orders [facility] [address] Katie Phoenix MD [address] [place] [address] [phone] Abnormal mammogram Social History Tobacco Use Types [...] Center [facility] [address] [address] 01/21/2026 1:45 PM EST Appointment [facility] [address] [address] Katie Phoenix MD [address] [place] [address] [phone] documented as of this encounter Results * BI MAMMOGRAM DIAGNOSTIC WITH TOMOSYNTHESIS WITH CAD (LEFT) (11/27/2018 1:41 PM EST) Anatomical Region Laterality Modality Breast Left, Breast Bilateral Left Ma mmography 11/27/2018 1:41 PM EST Impressions 11/27/2018 1:53 PM EST Left Breast: Category 1. Negative, no mammographic evidence of malignancy. Recommendation: Routine screening in 1 year. Results were discussed with the patient and she was provided with a written summary at the time of the study. OVERALL ASSESSMENT -- BI-RADS 1 NEGATIVE Narrative 11/27/2018 1:53 PM EST Reason for exam (per EHR order): cb; Additional clinical information obtained from the EHR: Questioned left focal asymmetry on recent screening mammogram. TECHNIQUE: Digital Mammography and tomosynthesis were used to obtain images. Computer Aided Detection was used to aid in interpretation and volumetric breast density assessment may have been used as an aid in evaluating breast density. COMPARISON: Comparison is made with relevant prior imaging in PACS. Breast Composition: heterogeneously dense which may obscure small masses. FINDINGS: Left Breast: The focal asymmetry questioned on the recent screening study does not persist on additional imaging, consistent with benign superimposition of breast parenchyma. No significant masses, suspicious calcifications, or other abnormalities are seen. Katie Phoenix MD IMG MG EXAMS Final Re sult documented in this encounter Visit Diagnoses Diagnosis Abnormal mammogram Abnormal mammogram, unspecified Abnormal mammogram Abnormal mammogram, unspecified documented in this encounter Care Teams Clean In Places Operator Relationship Specialty Start Date End Date Remy Bustillos MD [address] [place] [address] Drive [address] [place] [address] PCP - OBGYN Obstetrics and Gynecology 11/01/16 Katie Phoenix MD [address] [place] [address] [address] [place] [address] PCP - General Internal Medicine 11/12/19 documented as of this encounter Additional Source Comments The information contained in this document represents components of the legal health record. It is not the complete legal health record.[facility]
--- OUTSIDE RECORDS SUMMARY | 2025-10-16 09:27 | XMS_ITS | Clinical Summary ---
Author Organization [facility] Address [address] [address] Phone Care Team Providers Care Inner Tube Inserter Name Role Phone Katie Phoenix MD Primary Care Provider + Allergies No known active allergies Social History Tobacco Use Types Packs/Day Years [...] on file Sexual Orientation Not on file Plan of Treatment Upcoming Encounters Date Type Department Care Team (Late st Contact Info) Description 08/12/2024 Procedure Pass [facility] [address] [address] 01/21/2026 1:45 PM EST Appointment [facility] [address] [address] Katie Phoenix MD [address] [place] [address] [phone] Health Maintenance Due Date Last Done Comments LIPID PANEL 1958 DEPRESSION SCREENING 1970 SMOKING Hx and SMOKELESS TOBACCO SCREENING 1971 HEPATITIS C SCREENING 1976 COLOGUARD 2003 COLONOSCOPY 2003 COLORECTAL CANCER SCREENING 2003 FIT TEST 2003 FOBT 2003 SIGMOIDOSCOPY 2003 VIRTUAL COLONOSCOPY 2003 PNEUMOCOCCAL VACCINES (50+ years) (1 of 1 - PCV) 2008 OSTEOPOROSIS SCREENING INITIAL (ONE-TIME) 2023 INFLUENZA VACCINE (#1) 2025 , 09/15/2022, 09/15/2022, Additional history exists COVID-19 VACCINE ( season) 2025 09/17/2023, 10/07/2022, 02/24/2022, Additional history exists MAMMOGRAM 06/03/2026 06/03/2024, 07/0 03/2023, 03/23/2022, Additional history exists Adult Td,Tdap Booster 09/15/2032 09/15/2022, 021 RSV VACCINE (1 - 1-dose 75+ series) 2033 HEPATITIS A VACCINES Aged Out 02/10/2015, 12/03/19 14 No longer eligible based on patient's age to complete this topic ZOSTER VACCINES Completed 04/16/2019, 02/12/2019 HIB VACCINES Aged Out No longer eligi ble based on patient's age to complete this topic IPV VACCINES Aged Out No longer eligi ble based on patient's age to complete this topic MENINGOCOCCAL VACCINES (ACWY) Aged Out No longer eligible based on patient's age to complete this topic MENINGOCOCCAL VACCINES (B) Aged Out N o longer eligible based on patient's age to complete this topic Medical Devices Not on file Procedures Procedure Name Priority Date/Time Associated Diagnosis Comments BI MAMMOGRAM SCREENING WITH TOMOSYNTHESIS WITH CAD (BILATERAL) Routine 06/03/2024 12:46 PM EDT Screening mammogram, encounter for from Last 3 Months or Most Recently Relevant to Health Maintenance Results * (ABNORMAL) BI MAMMOGRAM SCREENING WITH TOMOSYNTHESIS WITH CAD (BILATERAL) (06/03/2024 12:46 PM EDT) Anatomical Region Laterality Modality Breast Left, Breast Right, Breast Bilateral Bila teral Mammography 06/05/2024 12:1 8 PM EDT Impressions 06/05/2024 12:22 PM EDT 1. Indeterminate calcifications in the right breast for which additional imaging is recommended with diagnostic mammography including magnification views. 2. No mammographic evidence of malignancy in the left breast. BI-RADS 0 INCOMPLETE Needs additional imaging evaluation The patient will be notified of the results and recommendations. The mammography department will contact the patient to arrange for the additional imaging. Narrative 06/05/2024 12:22 PM EDT BI MAMMOGRAM SCREENING WITH TOMOSYNTHESIS WITH CAD (BILATERAL) Additional patient information: Screening. COMPARISON: Comparison is made with relevant prior imaging. Breast composition: The breast tissue is heterogeneously dense which may obscure small masses. FINDINGS: Right Indeterminate grouped calcifications are present in the upper outer right breast at middle depth. Left No abnormal masses, suspicious calcifications, or other significant findings are identified mammographically in the left breast. Procedure Note Blaze Padilla MD - 06/05/2024 BI MAMMOGRAM SCREENING WITH TOMOSYNTHESIS WITH CAD (BILATERAL) Additional patient information: Screening. COMPARISON: Comparison is made with relevant prior imaging. Breast composition: The breast tissue is heterogeneously dense which mayobscure small masses. FINDINGS: Right Indeterminate grouped calcifications are present in the upper outer rightbreast at middle depth. Left No abnormal masses, suspicious calcifications, or other significantfindings are identified mammographically in the left breast. IMPRESSION: 1. Indeterminate calcifications in the right breast for which additionalimaging is recommended with diagnostic mammography including magnificationviews. 2. No mammographic evidence of malignancy in the left breast. BI-RADS 0 INCOMPLETE Needs additional imaging evaluation The patient will be notified of the results and recommendations. Themammography department will contact the patient to arrange for theadditional imaging. Katie Phoenix MD IMG MG EXAMS Final Re sult from Last 3 Months or Most Recently Relevant to Health Maintenance Insurance MEDICARE PART A & B [facility] MEDICARE SUPPLEMENT MEDICARE PART A & B [facility] MEDICARE SUPPLEMENT MEDICARE PART A & B MEDICARE SUPPLEMENT MEDICARE PART A & B MEDICARE SUPPLEMENT MEDICARE PART A & B [facility] MEDICARE SUPPLEMENT MEDICARE PART A & B [facility] MEDICARE SUPPLEMENT Care Teams Inner Tube Inserter Relationship Specialty Start Date End Date Katie Phoenix MD PCP - General Internal Medicine 11/12/19 Additional Source Comments The information contained in this document represents components of the legal health record. It is not the complete legal health record.[facility]
--- OUTSIDE RECORDS SUMMARY | 2025-10-16 09:27 | XMS_ITS | Encounter Summary ---
Author Organization [facility] Address 399 [facility] [address] [place] [phone] Phone Care Team Providers Care Administrative Coordinator Name Role Phone Katie Phoenix MD Primary Care Provider + Encounter Details Date Type Department Care Team (Late st Contact Info) Description 03/23/2022 Procedure Pass [facility] [address] [place] [address] Social History Tobacco Use Types Packs/Day Years [...] st Contact Info) Description 08/12/2024 Procedure Pass [facility] [address] [address] 01/21/2026 1:45 PM EST Appointment [facility] [address] [address] Katie Phoenix MD [address] [place] [phone] documented as of this encounter Visit Diagnoses Not on filedocumented in this encounter Care Teams Administrative Coordinator Relationship Specialty Start Date End Date Katie Phoenix MD PCP - General Internal Medicine 11/12/19 documented as of this encounter Additional Source Comments The information contained in this document represents components of the legal health record. It is not the complete legal health record.[facility]
--- OUTSIDE RECORDS SUMMARY | 2025-10-16 09:27 | XMS_ITS | Encounter Summary ---
Author Organization [facility] Address 399 [facility] [address] [place] [address] Phone Care Team Providers Care Sandwich Board Carrier Name Role Phone Katie Phoenix MD Primary Care Provider + Encounter Details Date Type Department Care Team (Late st Contact Info) Description 10/18/2020 Procedure Pass [facility] Diagnostic [facility] [address] [place] [phone] Social History Tobacco Use Types Packs/Day Years [...] st Contact Info) Description 08/12/2024 Procedure Pass [facility] [address] [place] [address] 01/21/2026 1:45 PM EST Appointment [facility] [address] [place] [address] [address] Katie Phoenix MD [address] [place] [address] documented as of this encounter Visit Diagnoses Not on filedocumented in this encounter Care Teams Sandwich Board Carrier Relationship Specialty Start Date End Date Katie Phoenix MD PCP - General Internal Medicine 11/12/19 documented as of this encounter Additional Source Comments The information contained in this document represents components of the legal health record. It is not the complete legal health record.[facility]
--- OUTSIDE RECORDS SUMMARY | 2025-10-16 09:27 | XMS_ITS | Encounter Summary ---
Author Organization [facility] Address 399 [facility] [address] [place] [address] Phone Care Team Providers Care Sales Order Clerk Name Role Phone Remy Bustillos MD Unavailable Katie Phoenix MD Primary Care Provider + Encounter Details Date Type Department Care Team (Late st Contact Info) Description 09/19/2016 Ancillary Orders [facility] [address] [place] [address] Remy Bustillos MD [address] [place] [phone] Social History Tobacco Use Types Packs/Day Years [...] st Contact Info) Description 08/12/2024 Procedure Pass [facility] [address] [place] [address] 01/21/2026 1:45 PM EST Appointment [facility] [address] [place] [address] Katie Phoenix MD [address] [place] [address] documented as of this encounter Results * Mammogram Outside (No Interpretation) (04/28/2015 12:00 AM EDT) Narrative SIL[facility] - 09/19/2016 12:20 PM EDT This study is for PACS storage only and not for interpretation. us Provider Not In System PhD IMG OUTSIDE IMAGING W /OUT INTERPRETATION Final Result [facility] documented in this encounter Visit Diagnoses Not on filedocumented in this encounter Care Teams Sales Order Clerk Relationship Specialty Start Date End Date Remy Bustillos MD [address] [place] [address] Drive [address] [place] [phone] PCP - OBGYN Obstetrics and Gynecology 11/01/16 Katie Phoenix MD [address] [place] [address] Drive [address] [place] [address] PCP - General Internal Medicine 11/12/19 documented as of this encounter Additional Source Comments The information contained in this document represents components of the legal health record. It is not the complete legal health record.[facility]
--- OUTSIDE RECORDS SUMMARY | 2025-10-16 09:27 | XMS_ITS | Encounter Summary ---
Author Organization [facility] Address 399 [facility] [address] [place] [address] Phone Care Team Providers Care Switchboard Operator Supervisor Name Role Phone Remy Bustillos MD Unavailable Katie Phoenix MD Primary Care Provider + Encounter Details Date Type Department Care Team (Late st Contact Info) Description 09/19/2016 Transcribe Orders [facility] Breast Imaging [facility] [address] [place] [phone] Remy Bustillos MD [address] [place] [address] [phone] Social History Tobacco Use Types Packs/Day Years [...] st Contact Info) Description 08/12/2024 Procedure Pass [facility] [address] [place] [address] 01/21/2026 1:45 PM EST Appointment [facility] [address] [place] [address] Katie Phoenix MD [address] [place] [phone] documented as of this encounter Results * Mammogram Outside (No Interpretation) (04/28/2015 12:15 AM EDT) Narrative [facility] - 09/19/2016 12:22 PM EDT This study is for PACS storage only and not for interpretation. us Provider Not In System PhD IMG OUTSIDE IMAGING W /OUT INTERPRETATION Final Result Performing Organization Address [facility] de Phone Number [email or web address] * Mammogram Outside (No Interpretation) (04/15/2014 12:00 AM EDT) Narrative [facility] - 09/19/2016 12:23 PM EDT This study is for PACS storage only and not for interpretation. us Provider Not In System PhD IMG OUTSIDE IMAGING W /OUT INTERPRETATION Final Result Performing Organization Address [facility] de Phone Number [email or web address] * Mammogram Outside (No Interpretation) (04/16/2013 12:00 AM EDT) Narrative [facility] - 09/19/2016 12:23 PM EDT This study is for PACS storage only and not for interpretation. us Provider Not In System PhD IMG OUTSIDE IMAGING W /OUT INTERPRETATION Final Result Performing Organization Address [facility] de Phone Number [email or web address] * Mammogram Outside (No Interpretation) (04/09/2013 12:00 AM EDT) Narrative [facility] - 09/19/2016 12:23 PM EDT This study is for PACS storage only and not for interpretation. us Provider Not In System PhD IMG OUTSIDE IMAGING W /OUT INTERPRETATION Final Result Performing Organization Address [facility] Co de Phone Number [email or web address] * Mammogram Outside (No Interpretation) (02/21/2012 12:00 AM EDT) Narrative [facility] - 09/19/2016 12:24 PM EDT This study is for PACS storage only and not for interpretation. us Provider Not In System PhD IMG OUTSIDE IMAGING W /OUT INTERPRETATION Final Result [facility] documented in this encounter Visit Diagnoses Not on filedocumented in this encounter Care Teams Switchboard Operator Supervisor Relationship Specialty Start Date End Date Remy Bustillos MD [address] [place] [address] Drive [address] [place] [phone] PCP - OBGYN Obstetrics and Gynecology 11/01/16 Katie Phoenix MD [address] [place] [address] Drive [address] [place] [address] PCP - General Internal Medicine 11/12/19 documented as of this encounter Additional Source Comments The information contained in this document represents components of the legal health record. It is not the complete legal health record.[facility]
--- OUTSIDE RECORDS SUMMARY | 2025-10-16 09:27 | XMS_ITS | Encounter Summary ---
Author Organization [facility] Address [address] [address] Phone Care Team Providers Care Price Accuracy Supervisor Name Role Phone Katie Phoenix MD Primary Care Provider + Encounter Details Date Type Department Care Team (Late Contact Info) Description 08/12/2024 Transcribe Orders [facility] Interventional Imaging [address] [place] [address] Katie Phoenix MD [address] [place] [phone] Social History Tobacco Use Types Packs/Day Years [...] (Late Contact Info) Description 08/12/2024 Procedure Pass [facility] Breast [facility] Diagnostic [facility] [address] [address] 01/21/2026 1:45 PM EST Appointment [facility] [address] [place] [address] Katie Phoenix MD [address] [place] [address] documented as of this encounter Visit Diagnoses Not on filedocumented in this encounter Care Teams Price Accuracy Supervisor Relationship Specialty Start Date End Date Katie Phoenix MD PCP - General Internal Medicine 11/12/19 documented as of this encounter Additional Source Comments The information contained in this document represents components of the legal health record. It is not the complete legal health record.[facility]
--- OUTSIDE RECORDS SUMMARY | 2025-10-16 09:27 | XMS_ITS | Encounter Summary ---
Author Organization [facility] Address 399 [facility] [address] [place] [address] Phone Care Team Providers Care Icu Specialist Name Role Phone Katie Phoenix MD Primary Care Provider + Encounter Details Date Type Department Care Team (Late st Contact Info) Description 03/23/2022 Ancillary Orders [facility] Breast Imaging and Diagnostic Center [address] [place] [phone] Katie Phoenix MD [address] [place] [address] [phone] Screening mammogram, encounter for Social History Tobacco [...] st Contact Info) Description 08/12/2024 Procedure Pass [facility] Breast Imaging [facility] Diagnostic [facility] [address] [place] [address] 01/21/2026 1:45 PM EST Appointment [facility] Breast Imaging and Diagnostic [address] [address] Katie Phoenix MD [address] [place] [phone] documented as of this encounter Results * BI MAMMOGRAM SCREENING WITH TOMOSYNTHESIS WITH CAD (BILATERAL) (05/30/2023 1:26 PM EDT) Anatomical Region Laterality Modality Breast Left, Breast Right, Breast Bilateral Bila teral Mammography 05/30/2023 4:46 PM EDT Impressions 05/30/2023 4:48 PM EDT No mammographic evidence of malignancy in either breast. Annual screening mammography is recommended. BI-RADS 1 NEGATIVE The patient will be notified of the results and recommendations. Narrative 05/30/2023 4:48 PM EDT BI MAMMOGRAM SCREENING WITH TOMOSYNTHESIS WITH CAD (BILATERAL) Additional patient information: Screening. COMPARISON: Comparison is made with relevant prior imaging. Breast composition: The breast tissue is heterogeneously dense which may obscure small masses. FINDINGS: No abnormal masses, suspicious calcifications, or other significant findings are identified mammographically in either breast. Procedure Note Genny Huddleston MD - 05/30/2023 BI MAMMOGRAM SCREENING WITH TOMOSYNTHESIS WITH CAD (BILATERAL) Additional patient information: Screening. COMPARISON: Comparison is made with relevant prior imaging. Breast composition: The breast tissue is heterogeneously dense which mayobscure small masses. FINDINGS: No abnormal masses, suspicious calcifications, or other significantfindings are identified mammographically in either breast. IMPRESSION: No mammographic evidence of malignancy in either breast. Annual screening mammography is recommended. BI-RADS 1 NEGATIVE The patient will be notified of the results and recommendations. us Katie Phoenix MD IMG MG EXAMS Final Re sult documented in this encounter Visit Diagnoses Diagnosis Screening mammogram, encounter for Screening mammogram, encounter for documented in this encounter Care Teams Icu Specialist Relationship Specialty Start Date End Date Katie Phoenix MD PCP - General Internal Medicine 11/12/19 documented as of this encounter Additional Source Comments The information contained in this document represents components of the legal health record. It is not the complete legal health record.[facility]
--- OUTSIDE RECORDS SUMMARY | 2025-10-16 09:27 | XMS_ITS | Encounter Summary ---
Author Organization [facility] Address [address] [address] Phone Care Team Providers Care Financial Investment Manager Name Role Phone Katie Phoenix MD Primary Care Provider + Encounter Details Date Type Department Care Team (Late st Contact Info) Description 05/30/2023 Ancillary Orders [facility] [address] [place] [address] Katie Phoenix MD [address] [place] [address] Screening mammogram, encounter for Social History Tobacco [...] [facility] Breast [facility] [address] [address] 01/21/2026 1:45 PM EST Appointment [facility] [address] [place] [address] Katie Phoenix MD [address] [place] [address] documented as of this encounter Results * (ABNORMAL) BI MAMMOGRAM SCREENING WITH [...] the patient to arrange for theadditional imaging. us Katie Phoenix MD IMG MG EXAMS Final Re sult documented in this encounter Visit Diagnoses Diagnosis Screening mammogram, encounter for Screening mammogram, encounter for documented in this encounter Care Teams Financial Investment Manager Relationship Specialty Start Date End Date Katie Phoenix MD PCP - General Internal Medicine 11/12/19 documented as of this encounter Additional Source Comments The information contained in this document represents components of the legal health record. It is not the complete legal health record.[facility]
--- OUTSIDE RECORDS SUMMARY | 2025-10-16 09:27 | XMS_ITS | Encounter Summary ---
Author Organization [facility] Address [address] [address] Phone Care Team Providers Care Internal Medicine Specialist Name Role Phone Katie Phoenix MD Primary Care Provider + Encounter Details Date Type Department Care Team (Late st Contact Info) Description 08/12/2024 Ancillary Orders [facility] Breast Imaging [facility] Diagnostic [facility] [address] Katie Phoenix MD [address] [place] [address] Screening mammogram for breast cancer (Primary Dx) Social History Tobacco Use Types [...] st Contact Info) Description 08/12/2024 Procedure Pass [facility] [address] [place] [address] 01/21/2026 1:45 PM EST Appointment [facility] [address] [place] [address] Katie Phoenix MD [address] [place] [address] Scheduled Orders Name Type Priority Associated Diagnoses Orde r Schedule Mammogram Screening (Bilateral) Imaging Routine Screening mammogram for breast cancer Expected: 08/12/2024, Expires: 08/12/2026 documented as of this encounter Visit Diagnoses Diagnosis Screening mammogram for breast cancer- Primary documented in this encounter Care Teams Internal Medicine Specialist Relationship Specialty Start Date End Date Katie Phoenix MD PCP - General Internal Medicine 11/12/19 documented as of this encounter Additional Source Comments The information contained in this document represents components of the legal health record. It is not the complete legal health record.[facility]
--- OUTSIDE RECORDS SUMMARY | 2025-10-16 09:27 | XMS_ITS | Encounter Summary ---
Author Organization [facility] Address [address] [facility] [address] [place] [address] Phone Care Team Providers Care Formal Waiter/Waitress Name Role Phone Remy Bustillos MD Unavailable Katie Phoenix MD Primary Care Provider + Encounter Details Date Type Department Care Team (Late st Contact Info) Description 11/01/2018 Ancillary Orders [facility] [address] [place] [phone] Remy Bustillos MD [address] [place] [address] [phone] Screening breast examination Social History Tobacco Use [...] st Contact Info) Description 08/12/2024 Procedure Pass [facility] [address] [place] [address] 01/21/2026 1:45 PM EST Appointment [facility] [address] [place] [address] 78809 Katie Phoenix MD [address] [place] [address] 12[address] documented as of this encounter Results * (ABNORMAL) BI MAMMOGRAM SCREENING WITH TOMOSYNTHESIS WITH CAD (BILATERAL) (11/01/2018 2:13 PM EST) Anatomical Region Laterality Modality Breast Left, Breast Right, Breast Bilateral Bila teral Mammography 11/01/2018 2:13 PM EST Impressions 11/01/2018 2:45 PM EST Left Breast: Category 0. Possible focal asymmetry. Recommendation: Left breast additional imaging at this time with diagnostic mammogram and limited ultrasound. Right Breast: Category 1. Negative, no mammographic evidence of malignancy. Recommendation: Routine screening in 1 year with mammography. Recommend additional imaging. The patient was sent a letter with the results of the exam and follow-up recommendation. She will be called by telephone to arrange for the additional work-up recommended. OVERALL ASSESSMENT -- BI-RADS 0 INCOMPLETE Needs additional evaluation Narrative 11/01/2018 2:45 PM EST Reason for exam: Screening. No new breast complaints. TECHNIQUE: Digital Mammography and tomosynthesis were used to obtain images. Computer Aided Detection was used to aid in interpretation and volumetric breast density assessment may have been used as an aid in evaluating breast density. COMPARISON: Comparison is made with relevant prior imaging in PACS. Breast Composition: heterogeneously dense which may obscure small masses FINDINGS: Left Breast: A possible focal asymmetry is present involving the medial aspect of the left breast in the CC projection, likely inferiorly. Right Breast: No significant masses, suspicious calcifications, or other abnormalities are seen. Procedure Note AdyBeth roach MD - 11/01/2018 Reason for exam: Screening. No new breast complaints. TECHNIQUE: Digital Mammography and tomosynthesis were used to obtain images. Computer Aided Detection was used to aid in interpretation and volumetric breast density assessment may have been used as an aid in evaluating breast density. COMPARISON: Comparison is made with relevant prior imaging in PACS. Breast Composition: heterogeneously dense which may obscure small masses FINDINGS: Left Breast: A possible focal asymmetry is present involving the medial aspect of the left breast in the CC projection, likely inferiorly. Right Breast: No significant masses, suspicious calcifications, or other abnormalities are seen. IMPRESSION: Left Breast: Category 0. Possible focal asymmetry. Recommendation: Left breast additional imaging at this time with diagnostic mammogram and limited ultrasound. Right Breast: Category 1. Negative, no mammographic evidence of malignancy. Recommendation: Routine screening in 1 year with mammography. Recommend additional imaging. The patient was sent a letter with the results of the exam and follow-up recommendation. She will be called by telephone to arrange for the additional work-up recommended. OVERALL ASSESSMENT -- BI-RADS 0 INCOMPLETE Needs additional evaluation us Remy Bustillos MD IM MG EXAMS Final Result documented in this encounter Visit Diagnoses Diagnosis Screening breast examination Other screening breast examination Screening breast examination Other screening breast examination documented in this encounter Care Teams Formal Waiter/Waitress Relationship Specialty Start Date End Date Remy Bustillos MD [address] [place] [address] Drive [address] [place] [address] PCP - OBGYN Obstetrics and Gynecology 11/01/16 Katie Phoenix MD [address] [place] [address] Drive [address] [place] [address] PCP - General Internal Medicine 11/12/19 documented as of this encounter Additional Source Comments The information contained in this document represents components of the legal health record. It is not the complete legal health record.[facility]
--- OUTSIDE RECORDS SUMMARY | 2025-10-16 09:27 | XMS_ITS | Encounter Summary ---
Author Organization [facility] Address [address] [facility] [address] [place] [address] Phone Care Team Providers Care Sap Business Analyst Name Role Phone Remy Bustillos MD Unavailable Katie Phoenix MD Primary Care Provider + Encounter Details Date Type Department Care Team (Late st Contact Info) Description 11/01/2018 Ancillary Orders [facility] [address] [place] [phone] Remy Bustillos MD [address] [place] [address] [phone] Screening breast examination Social History Tobacco Use [...] st Contact Info) Description 08/12/2024 Procedure Pass [facility] [address] [place] [address] 01/21/2026 1:45 PM EST Appointment [facility] [address] [place] [address] [phone] Katie Phoenix MD [address] [place] [address] [phone] documented as of this encounter Results * BI MAMMOGRAM SCREENING WITH TOMOSYNTHESIS WITH CAD (BILATERAL) (11/12/2019 11:35 AM EST) Anatomical Region Laterality Modality Breast Left, Breast Right, Breast Bilateral Bila teral Mammography 11/12/2019 11:5 3 AM EST Impressions 11/12/2019 11:58 AM EST No mammographic evidence of malignancy. Recommend routine screening. The patient was sent a letter with the results of the exam and follow-up recommendation. OVERALL ASSESSMENT -- BI-RADS 1 NEGATIVE Narrative 11/12/2019 11:58 AM EST Reason for exam: Screening. No new [...] dense which may obscure small masses. FINDINGS: Bilateral Breasts: No significant masses, suspicious calcifications, or other abnormalities are seen. Procedure Note India Marshall MD - 11/12/2019 Reason for exam: Screening. No new breast complaints. TECHNIQUE: Digital Mammography and tomosynthesis were used to obtain images. ComputerAided Detection was used to aid in interpretation and volumetric breastdensity assessment may have been used as an aid in evaluating breast density. COMPARISON: Comparison is made with relevant prior imaging in PACS. Breast Composition: heterogeneously dense which may obscure small masses. FINDINGS: Bilateral Breasts: No significant masses, suspicious calcifications, or other abnormalitiesare seen. IMPRESSION: No mammographic evidence of malignancy. Recommend routine screening. The patient was sent a letter with the results of the exam and follow-up recommendation. OVERALL ASSESSMENT -- BI-RADS 1 NEGATIVE Remy Bustillos MD IM MG EXAMS Final Result documented in this encounter Visit Diagnoses Diagnosis Screening breast examination Other screening breast examination Screening breast examination Other screening breast examination documented in this encounter Care Teams Sap Business Analyst Relationship Specialty Start Date End Date Remy Bustillos MD [address] [place] [address] [address] [place] [address] PCP - OBGYN Obstetrics and Gynecology 11/01/16 Katie Phoenix MD [address] [place] [address] Drive [address] [place] [address] PCP - General Internal Medicine 11/12/19 documented as of this encounter Additional Source Comments The information contained in this document represents components of the legal health record. It is not the complete legal health record.[facility]
--- OUTSIDE RECORDS SUMMARY | 2025-10-16 09:27 | XMS_ITS | Encounter Summary ---
Author Organization [facility] Address [address] [facility] [address] [place] [address] Phone Care Team Providers Care Generation Engineer Name Role Phone Katie Phoenix MD Primary Care Provider + Encounter Details Date Type Department Care Team (Late st Contact Info) Description 11/12/2019 Ancillary Orders [facility] [address] [place] [address] Remy Bustillos MD [address] [place] [address] [phone] Breast screening Social History Tobacco Use Types Packs/Day Years [...] st Contact Info) Description 08/12/2024 Procedure Pass [facility] [address] [place] [address] 01/21/2026 1:45 PM EST Appointment [facility] [address] [address] Katie Phoenix MD [address] [place] [phone] documented as of this encounter Results * BI MAMMOGRAM SCREENING WITH TOMOSYNTHESIS WITH CAD (BILATERAL) (02/11/2021 1:58 PM EDT) Anatomical Region Laterality Modality Breast Left, Breast Right, Breast Bilateral Bila teral Mammography 02/12/2021 1:22 PM EDT Impressions 02/12/2021 1:28 PM EDT No mammographic evidence of malignancy. Recommend routine screening. The patient was sent a letter with the results of the exam and follow-up recommendation. OVERALL ASSESSMENT -- BI-RADS 1 NEGATIVE Narrative 02/12/2021 1:28 PM EDT Reason for exam: Screening. No new breast complaints. Mother with breast cancer at age 50. TECHNIQUE: Digital Mammography and tomosynthesis were used [...] or other abnormalities are seen. Procedure Note Sandy Atkins MD - 02/12/2021 Reason for exam: Screening. No new breast complaints. Mother with breast cancer at age50. TECHNIQUE: Digital Mammography and tomosynthesis were used [...] follow-uprecommendation. OVERALL ASSESSMENT -- BI-RADS 1 NEGATIVE Remy Bustillos MD IMG MG EXAMS Final Result documented in this encounter Visit Diagnoses Diagnosis Breast screening Breast screening, unspecified Breast screening Breast screening, unspecified documented in this encounter Care Teams Generation Engineer Relationship Specialty Start Date End Date Katie Phoenix MD PCP - General Internal Medicine 11/12/19 documented as of this encounter Additional Source Comments The information contained in this document represents components of the legal health record. It is not the complete legal health record.[facility]
--- OUTSIDE RECORDS SUMMARY | 2025-10-16 09:28 | XMS_ITS | Encounter Summary ---
Author Organization [facility] Address [address] [facility] [address] [place] [phone] Phone Care Team Providers Care Maintenance Services Dispatcher Name Role Phone Katie Phoenix MD Primary Care Provider + Encounter Details Date Type Department Care Team (Late st Contact Info) Description 09/09/2021 Procedure Pass [facility] [address] [place] [address] Social History Tobacco Use Types Packs/Day Years [...] st Contact Info) Description 08/12/2024 Procedure Pass [facility] [address] [address] 01/21/2026 1:45 PM EST Appointment [facility] [address] Katie Phoenix MD [address] [place] [phone] documented as of this encounter Visit Diagnoses Not on filedocumented in this encounter Care Teams Maintenance Services Dispatcher Relationship Specialty Start Date End Date Katie Phoenix MD PCP - General Internal Medicine 11/12/19 documented as of this encounter Additional Source Comments The information contained in this document represents components of the legal health record. It is not the complete legal health record.[facility]
--- OUTSIDE RECORDS SUMMARY | 2025-10-16 09:28 | XMS_ITS | Encounter Summary ---
Author Organization [facility] Address [address] [address] Phone Care Team Providers Care Silicator Name Role Phone Katie Phoenix MD Primary Care Provider + Reason for Referral * Outpatient Procedure - Closed Specialty Diagnoses / Procedures Referred By Contac t Referred To Contact Radiology Diagnoses Abnormal finding on radiological examination of breast Procedures Mammogram Stereotactic Breast Core Biopsy (Right) Katie Phoenix MD Phone: tel: Referral ID Status Reason Start Date Expiration Date Visits Re quested Visits Authorized [id number] Closed 06/19/2024 08/04/2024 1 1 Encounter Details Date Type Department Care Team (Late st Contact Info) Description 06/19/2024 Ancillary Orders [facility] [address] [place] [address] Katie Phoenix MD [address] [place] [address] Abnormal finding on radiological examination of breast [...] [facility] [address] [place] [address] 01/21/2026 1:45 PM EST Appointment [facility] [place] [address] [place] [address] Katie Phoenix MD [address] [place] [address] documented as of this encounter Results * BI MAMMOGRAM STEREOTACTIC BREAST CORE BIOPSY WITH TOMOSYNTHESIS (RIGHT) (07/24/2024 10:45 AM EDT) Anatomical Region Laterality Modality Breast Right, Breast Bilateral Right I nterventional Radiography 07/24/2024 10:3 8 AM EDT Addenda Addendum [...] initiated on 07/25/2024 2:17 PM, Message ID [id number]. ATTESTATION: Genny Rivera, as teaching physician have [...] available for the non- critical/neil portions. ATTESTATION: I, Genny Huddleston, as teaching physician have reviewed the images, [...] procedure and there were no immediate complications. Katie Phoenix MD IMG BI IRP GUIDED BREAST PROC Edited Result - Final documented in this encounter Visit Diagnoses Diagnosis Abnormal finding on radiological examination of breast- Primary Abnormal finding on radiological examination of breast documented in this encounter Care Teams Silicator Relationship Specialty Start Date End Date Katie Phoenix MD PCP - General Internal Medicine 11/12/19 documented as of this encounter Additional Source Comments The information contained in this document represents components of the legal health record. It is not the complete legal health record.[facility]
--- OUTSIDE RECORDS SUMMARY | 2025-10-16 09:28 | XMS_ITS | Encounter Summary ---
Author Organization [facility] Address [address] [facility] [address] [place] [address] Phone Care Team Providers Care Cutlery Grinder Name Role Phone Remy Bustillos MD Unavailable Katie Phoenix MD Primary Care Provider + Encounter Details Date Type Department Care Team (Latest Contact Info) Description 08/25/2016 Transcribe Orders [facility] [address] [place] [phone] [email or web address] Screening (Primary Dx) Social History Tobacco Use Types [...] [facility] [place] [address] [address] 01/21/2026 1:45 PM EST Appointment [facility] [address] [place] [address] Katie Phoenix MD [address] [place] [phone] documented as of this encounter Results * BI MAMMOGRAM SCREENING WITH TOMOSYNTHESIS WITH CAD (BILATERAL) (11/01/2016 11:05 AM EST) Anatomical Region Laterality Modality Breast Left, Breast Right, Breast Bilateral Bila teral Mammography 11/01/2016 11:0 5 AM EST Impressions 11/01/2016 12:07 PM EST No mammographic evidence of malignancy. Recommend routine screening. The patient was sent a letter with the results of the exam and follow-up recommendation. OVERALL ASSESSMENT -- BI-RADS 1 NEGATIVE END OF IMPRESSION Narrative 11/01/2016 12:07 PM EST INDICATION: Screening. No current complaints. TECHNIQUE: Digital Mammography and tomosynthesis were used to obtain images. Computer Aided Detection was used to aid in interpretation and volumetric breast density assessment may have been used as an aid in evaluating breast density. COMPARISON: April 28, 2015 and April 15, 2014. Breast Composition: heterogeneously dense which may obscure small masses. FINDINGS: Bilateral Breasts: No significant masses, suspicious calcifications, or other abnormalities are seen. Procedure Note ByEmmanuelle breen MD - 11/01/2016 INDICATION: Screening. No current complaints. TECHNIQUE: Digital Mammography and tomosynthesis were used to obtain images. Computer Aided Detection was used to aid in interpretation and volumetric breast density assessment may have been used as an aid in evaluating breast density. COMPARISON: April 28, 2015 and April 15, 2014. Breast Composition: heterogeneously dense which may obscure small masses. FINDINGS: Bilateral Breasts: No significant masses, suspicious calcifications, or other abnormalities are seen. IMPRESSION: No mammographic evidence of malignancy. Recommend routine screening. The patient was sent a letter with the results of the exam and follow-up recommendation. OVERALL ASSESSMENT -- BI-RADS 1 NEGATIVE END OF IMPRESSION Josué Mcconnell MD IMG MG EXAMS Fi nal Result documented in this encounter Visit Diagnoses Diagnosis Screening- Primary Screening for unspecified condition Screening Screening for unspecified condition documented in this encounter Care Teams Cutlery Grinder Relationship Specialty Start Date End Date Remy Bustillos MD [address] [place] [address] [address] [place] [address] PCP - OBGYN Obstetrics and Gynecology 11/01/16 Katie Phoenix MD [address] [facility] [address] [place] [address] PCP - General Internal Medicine 11/12/19 documented as of this encounter Additional Source Comments The information contained in this document represents components of the legal health record. It is not the complete legal health record.[facility]
--- OUTSIDE RECORDS SUMMARY | 2025-10-16 09:28 | XMS_ITS | Encounter Summary ---
Author Organization [facility] Address [address] [address] Phone Care Team Providers Care Forest Pathology Teacher Name Role Phone Katie Phoenix MD Primary Care Provider + Reason for Referral * Outpatient Procedure - Closed Specialty Diagnoses / Procedures Referred By Contac t Referred To Contact Radiology Diagnoses Abnormal finding on radiological examination of breast Procedures Mammogram Diagnostic Post Procedure (Right) Katie Phoenix MD Phone: tel: Referral ID Status Reason Start Date Expiration Date Visits Re quested Visits Authorized [id number] Closed 07/24/2024 07/24/2025 1 1 Encounter Details Date Type Department Care Team (Late st Contact Info) Description 07/24/2024 Ancillary Orders [facility] [address] [facility] [address] [place] [address] Katie Phoenix MD [address] [place] [address] [phone] Abnormal finding on radiological examination of breast [...] st Contact Info) Description 08/12/2024 Procedure Pass [facility] [address] [place] [address] 01/21/2026 1:45 PM EST Appointment [facility] [address] [place] [phone] Katie Phoenix MD [address] [place] [phone] documented as of this encounter Results * BI MAMMOGRAM DIAGNOSTIC POST PROCEDURE NO TOMOSYNTHESIS NO CAD (RIGHT) (07/24/2024 10:46 [...] initiated on 07/25/2024 2:17 PM, Message ID [id number]. ATTESTATION: Genny Rivera, as teaching physician have [...] Rachael Ratliff. us Katie Phoenix MD IMG MG EXAMS Edited R esult - Final documented in this encounter Visit Diagnoses Diagnosis Abnormal finding on radiological examination of breast- Primary Abnormal finding on radiological examination of breast documented in this encounter Care Teams Forest Pathology Teacher Relationship Specialty Start Date End Date Katie Phoenix MD PCP - General Internal Medicine 11/12/19 documented as of this encounter Additional Source Comments The information contained in this document represents components of the legal health record. It is not the complete legal health record.[facility]
[2025-10-16 10:02] LABS: MANUAL DIFF FLAG NO
[2025-10-16 10:17] LABS: Hematocrit 38.7 % (37.0-47.0); Hemoglobin 13.0 g/dl (12.0-16.0); Imm Gran Abs Auto 0.01 X10*3/uL (0.00-0.03); Imm Gran Pct Auto 0.2 % (0.0-0.4); Lymphocytes Absolute Auto 1.7 X10*3/uL (1.2-4.9); Mean Corpuscular HGB Conc 33.6 g/dl (31.0-35.0); Mean Corpuscular Hemoglobin 29.8 pg (27.0-33.0); Mean Corpuscular Volume 88.8 fL (80.0-98.0); NRBC Abs Auto 0.000 X10*3/uL (0.0-0.012); NRBC Pct Auto 0.0 /100WBC (0.0-0.2); Platelet Count 297 X10*3/uL (160-400); Red Blood Count 4.36 X10*6/uL (4.20-5.50); White Blood Count 4.2 X10*3/uL (4.8-10.8)
[2025-10-16 11:17] LABS: Alanine Aminotransferase 21 U/L (0-31); Albumin Level 4.3 g/dL (3.5-5.0); Alkaline Phosphatase 76 U/L (39-117); Anion Gap 11 (12-20); Aspartate Amino Transferase 22 U/L (5-31); Blood Urea Nitrogen 15 mg/dL (9-16); Calcium 9.5 mg/dL (8.4-10.2); Carbon Dioxide 31 mmol/L (22-29); Chloride 107 mmol/L (96-108); Cholesterol 202 mg/dL (<200); Estimated Glomerular Filt Rate 50; HDL Cholesterol 68 mg/dL (>40); Potassium 4.5 mmol/L (3.3-5.1); Sodium 144 mmol/L (135-145); Total Protein 6.8 g/dL (6.5-8.0); Triglycerides 97 mg/dL (<150)
== END 2025-10-16 09:06 | disposition home or self-care (01) ==
LOC: HO.10HDL 09:05
PROVIDERS: Visit Provider Internal Medicine
DX: Z00.00 Encounter for general adult medical examination without abnormal findings (principal); E78.5 Hyperlipidemia, unspecified
CPT/HCPCS: 36415; 80053; 80061; 85025